=== PATIENT | male | born 1960 | race Caucasian/White ===

== ENCOUNTER 2016-12-02 21:17 | Emergency (ER) | payer MEDICARE ==
--- NOTE | 2016-12-02 21:32 | EDM.PDOC ---
ED HPI GENERAL MEDICAL PROBLEM - General Chief Complaint: General Stated Complaint: PNEUMONIA/TROUBLE BREATHING Time Seen by Provider: 12/02/16 21:32 Source of Information: Reports: Patient - History of Present Illness INITIAL COMMENTS - FREE TEXT/NARRATIVE: HISTORY AND PHYSICAL: History of present illness: [] Presents with a diagnosis of atypical pneumonia last week through the [facility], he was provided azithromycin and nebulizer treatments at that time, since he's been doing better he is completed the antibiotics and is concerned that he is short of breath although he does not exhibit any significant symptoms on exam No fever nausea vomiting chest pain shortness breath headache dizziness or palpitation no bowel or urine symptoms cough is resolved a couple days ago Review of systems: As per history of present illness and below otherwise all systems reviewed and negative. Past medical history: As per history of present illness and as reviewed below otherwise noncontributory. Surgical history: As per history of present illness and as reviewed below otherwise noncontributory. Social history: No reported history of drug or alcohol abuse. Family history: As per history of present illness and as reviewed below otherwise noncontributory. Physical exam: HEENT: Atraumatic, normocephalic, pupils reactive, negative for conjunctival pallor or scleral icterus, mucous membranes moist, throat clear, neck supple, nontender, trachea midline. Lungs: Clear to auscultation, breath sounds equal bilaterally, chest nontender. No retractions symmetrical expansion Heart: S1S2, regular, negative for clicks, rubs, or JVD. Abdomen: Soft, nondistended, nontender. Negative for masses or hepatosplenomegaly. Negative for costovertebral tenderness. Pelvis: Stable nontender. Genitourinary: Deferred. Rectal: Deferred. Extremities: Atraumatic, negative for cords or calf pain. Neurovascular unremarkable. Neuro: Awake, alert, oriented. Cranial nerves II through XII unremarkable. Cerebellum unremarkable. Motor and sensory unremarkable throughout. Exam nonfocal. Diagnostics: [] Chest x-ray Therapeutics: Patient completed Z-Guilherme He has nebulizer treatments at his disposal Impression: Atypical pneumonia improved/resolved [] Chronic history of baseline Definitive disposition and diagnosis as appropriate pending reevaluation and review of above. - Related Data Allergies Allergy/AdvReac Type Severity Reaction Status Date / Time No Known Allergies Allergy Verified 12/02/16 21:35 Home Meds: Home Meds Ipratropium/Albuterol Sulfate [Iprat-Albut 0.5-3(2.5) mg/3 ml] 3 ml IH ASDIRECTED 12/02/16 [History] OLANZapine 20 mg PO DAILY 12/02/16 [History] ED ROS GENERAL - Review of Systems Review Of Systems: ROS reveals no pertinent complaints other than HPI. ED EXAM, GENERAL - Physical Exam Exam: See Below Course - Vital Signs Last Recorded V/S: Last Vital Signs Temp 36.6 C 12/02/16 21:37 Pulse 86 12/02/16 21:37 Resp 18 12/02/16 21:37 BP 141/80 H 12/02/16 21:37 Pulse Ox 93 L 12/02/16 21:37 - Orders/Labs/Meds Orders: Active Orders 24 hr Category Date Time Status Chest 2V [CR] Stat Exams 12/02/16 21:32 Taken Departure - Departure Time of Disposition: 22:23 Disposition: Home, Self-Care 01 Condition: good Clinical Impression: Bronchitis Forms: ED Department Discharge Additional Instructions: Continue current medications to completion as prescribed Return if symptoms persist or worsen Followup with primary care as needed or as scheduled The following information is given to patients seen in the emergency department who are being discharged to home. This information is to outline your options for follow-up care. We provide all patients seen in our emergency department with a follow-up referral. The need for follow-up, as well as the timing and circumstances, are variable depending upon the specifics of your emergency department visit. If you don't have a primary care physician on staff, we will provide you with a referral. We always advise you to contact your personal physician following an emergency department visit to inform them of the circumstance of the visit and for follow-up with them and/or the need for any referrals to a consulting specialist. The emergency department will also refer you to a specialist when appropriate. This referral assures that you have the opportunity for follow-up care with a specialist. All of these measure are taken in an effort to provide you with optimal care, which includes your follow-up. Under all circumstances we always encourage you to contact your private physician who remains a resource for coordinating your care. When calling for follow-up care, please make the office aware that this follow-up is from your recent emergency room visit. If for any reason you are refused follow-up, please contact the [facility] emergency department at and asked to speak to the emergency department charge nurse. - My Orders Last 24 Hours: My Active Orders 12/02/16 21:32 Chest 2V [CR] Stat - Assessment/Plan Last 24 Hours: My Active Orders 12/02/16 21:32 Chest 2V [CR] Stat
[2016-12-02 21:43] VITALS: BP 141/80
--- NOTE | 2016-12-03 12:49 | CR ---
EXAM DATE: 12/02/16 PATIENT'S AGE: 56 Patient: VLAD BLACKWELL Facility: [place], [place] Site . Site : [id number] Study: XRay Chest [id number]/27/[id number] 10:15:59 PM Ordering Physician: Donn Hassan Final Report: INDICATION: History of pneumonia TECHNIQUE: Chest 2 views. COMPARISON: None available FINDINGS: Cardiovascular and mediastinum: Heart size and vasculature are normal in caliber and appearance. Mediastinum is within normal limits. Lungs and pleural spaces: Mild right infrahilar subsegmental atelectasis or scarring and apparent mild posterior basilar subsegmental atelectasis. No consolidation or pleural effusions. Bones and soft tissues: No significant findings. IMPRESSION: Foci of subsegmental atelectasis. No consolidation. Dictated by Dilip Rebollar MD @ 12/02/2016 10:32:13 PM Dictated by: Dilip Rebollar MD @ 12/02/2016 22:32:17 (Electronic Signature) Report Signed by Proxy and Original Signed Document filed in the Medical Record. [facility]
== END 2016-12-02 23:01 | disposition home or self-care (01) ==
LOC: MW.ED 21:17
DX: J40 Bronchitis, not specified as acute or chronic (principal)
CPT/HCPCS: 71020; 71020-26; 99283

== ENCOUNTER → 2016-12-04 | Outpatient (CLI) | payer MEDICARE ==
[2016-12-04 10:57] LABS: CHLORIDE,CL 102 mmol/L (98-110); SODIUM,NA 133 mmol/L (136-146)
== END ==
LOC: MW.LAB 10:02
PROVIDERS: ATTEND Nurse Practitioner Psychiatric/Mental Health
DX: Z79.899 Other long term (current) drug therapy (principal); J40 Bronchitis, not specified as acute or chronic
CPT/HCPCS: 36415; 80053; 80061; 84443; 85027; 99203